=== PATIENT | female | born 1990 | race Caucasian/White ===

== ENCOUNTER 2016-12-13 22:05 | Inpatient (IN) | payer BC ==
[2016-12-14] MEDS ORDERED: Promethazine INJ(RESTRICTED)* 25 MG/ML 1 ML VIAL IV ONE (01:00)
[2016-12-14] MEDS ORDERED: Nalbuphine* 20 MG/ML 1 ML VIAL IV ONE (01:00)
[2016-12-14] MEDS ORDERED: Promethazine INJ(RESTRICTED)* 25 MG/ML 1 ML VIAL IM ONE (01:00)
[2016-12-14] MEDS ORDERED: Nalbuphine* 20 MG/ML 1 ML VIAL IM ONE (01:00)
[2016-12-14 12:47] LABS: Hematocrit 38 % (35-47); Mean Corpuscular HGB Conc 35 g/dl (31-36); Mean Corpuscular Hemoglobin 33 pg (27-31); Mean Corpuscular Volume 94 fL (80-97); Mean Platelet Volume 10 um3 (7.4-10.4); Red Blood Count 3.99 10^6/ul (4.0-5.4); Red Cell Distribution Width 13 % (10.5-15)
[2016-12-14] MEDS ORDERED: OBEPIDURAL* 250 ML ONE (17:29)
[2016-12-14] MEDS ORDERED: fentaNYL* 50 MCG/ML 2 ML VIAL (100 MCG VIAL) IV SLOW PU ONE (19:07)
[2016-12-14] MEDS ORDERED: fentaNYL* 50 MCG/ML 2 ML VIAL (100 MCG VIAL) ONE (19:08)
[2016-12-14] MEDS ORDERED: Sodium Citrate/Citric Acid* 15 ML UDC PO PRN (19:37)
[2016-12-14] MEDS ORDERED: Phenylephrine IV* 40 MCG/ML 10 ML SYRINGE IV PUSH PRN ×2 (19:37)
[2016-12-14] MEDS ORDERED: OBEPIDURAL* 250 ML EPIDURAL SCH (20:00)
[2016-12-14] MEDS ORDERED: Oxytocin in LR* 20 UNITS/1,000 ML BAG IVPB ONE (22:17)
[2016-12-15] MEDS ORDERED: Witch Hazel PAD* JAR TOPICAL PRN (00:07)
[2016-12-15] MEDS ORDERED: Glycerin ADULT SUPP PR PRN (00:07)
[2016-12-15] MEDS ORDERED: Tetan/Diph/Pertus SYR(Tdap)* 0.5 ML SYR(BOOSTRIX) use SYR IM ONE (00:07)
[2016-12-15] MEDS ORDERED: Acetaminophen TAB* 325 MG PO PRN (00:07)
[2016-12-15] MEDS ORDERED: Dibucaine 1% 28.35 GM TUBE PR PRN (00:07)
[2016-12-15] MEDS: Ibuprofen TAB* 600 MG PO PRN ×3 (02:24→16:24)
[2016-12-15 06:35] LABS: Hematocrit 33 % (35-47); Hemoglobin 11.3 g/dl (12.0-16.0); Mean Corpuscular HGB Conc 34 g/dl (31-36); Mean Corpuscular Hemoglobin 32 pg (27-31); Mean Corpuscular Volume 94 fL (80-97); Mean Platelet Volume 10 um3 (7.4-10.4); Red Blood Count 3.54 10^6/ul (4.0-5.4); Red Cell Distribution Width 13 % (10.5-15); White Blood Count 22.1 10^3/ul (3.5-10.8)
[2016-12-15 06:36] LABS: Add Diff/Slide Review? Slide Review Added; Comments Flag Yes
[2016-12-15] MEDS ORDERED: Simethicone CHEW TAB* 80 MG PO SCH (08:30)
[2016-12-15] MEDS: Docusate CAP* 100 MG PO SCH ×2 (08:33→13:29)
[2016-12-15] MEDS: oxyCODONE/Acetamin 5/325 MG* TAB PO PRN ×2 (13:29→18:03)
[2016-12-16] MEDS: Ibuprofen TAB* 600 MG PO PRN ×2 (06:15→13:50)
[2016-12-16 08:45] VITALS: BP 112/69
[2016-12-16] MEDS ORDERED: Ferrous Gluconate TAB* 324 MG TAB PO SCH (09:00)
[2016-12-16] MEDS: Docusate CAP* 100 MG PO SCH ×2 (09:16→13:50)
[2016-12-16] MEDS: Butalb/Acetamin/Caff TAB* 1 TAB PO SCH ×2 (09:16→13:50)
== END 2016-12-16 17:22 | disposition home or self-care (01) | DRG 560 ==
LOC: MCHOBOUT 22:05 → MCHOB 12-14 12:01
PROVIDERS: ADMIT Midwife; ATTEND Midwife
PROC: 10E0XZZ Delivery of Products of Conception, External Approach (ICD-10-PCS; principal; 2016-12-14)
PROC: 10907ZC Drainage of Amniotic Fluid, Therapeutic from Products of Conception, Via Natural or Artificial Opening (ICD-10-PCS; 2016-12-14)
PROC: 4A1HXCZ Monitoring of Products of Conception, Cardiac Rate, External Approach (ICD-10-PCS; 2016-12-14)
PROC: 0KQM0ZZ Repair Perineum Muscle, Open Approach (ICD-10-PCS; 2016-12-14)
DX: O48.0 Post-term pregnancy (principal); O74.6 Other complications of spinal and epidural anesthesia during labor and delivery; O70.1 Second degree perineal laceration during delivery; G97.41 Accidental puncture or laceration of dura during a procedure; Z3A.40 40 weeks gestation of pregnancy; Z37.0 Single live birth; O74.5 Spinal and epidural anesthesia-induced headache during labor and delivery; Y84.8 Other medical procedures as the cause of abnormal reaction of the patient, or of later complication, without mention of misadventure at the time of the procedure; Y92.238 Other place in hospital as the place of occurrence of the external cause; T40.2X5A Adverse effect of other opioids, initial encounter; R11.0 Nausea; M54.2 Cervicalgia
CPT/HCPCS: 36415; 85025; 86850; 86900; 86901; A9270-GY; J2300; J2550; J3010

== ENCOUNTER 2016-12-18 18:12 | Day surgery (SDC) | payer BC | END 2016-12-18 20:55 | disposition home or self-care (01) | LOC: OR 18:12 | PROVIDERS: ATTEND Anesthesiology | DX: R51 Headache (principal); M54.2 Cervicalgia; M54.9 Dorsalgia, unspecified; H93.19 Tinnitus, unspecified ear | CPT/HCPCS: 62273 ==

== ENCOUNTER 2017-06-12 09:00 | Emergency (ER) | payer BC ==
[2017-06-12 09:45] VITALS: BP 128/75
--- NOTE | 2017-06-12 10:00 | UC ---
Throat Pain/Nasal Joni HPI - HPI Summary HPI Summary: sore throat x 4 days no fever, no chills, no cough , no runny nose or nasal congestion - History of Current Complaint Chief Complaint: UCRespiratory Stated Complaint: SORE THROAT Time Seen by Provider: 06/12/17 09:50 Hx Obtained From: Patient Hx Last Menstrual Period: 05/20/17 Onset/Duration: Gradual Onset, Lasting Days - 4, Still Present Severity: Moderate Pain Intensity: 45 Cough: None Associated Signs & Symptoms: Negative: Dysphagia, FB Sensation, Drooling, Wheezing, Hoarseness, Sinus Discomfort, Nasal Discharge, Fever, Vomiting, Rash - Allergies/Home Medications Allergies/Adverse Reactions: Allergies Allergy/AdvReac Type Severity Reaction Status Date / Time No Known Allergies Allergy Verified 06/12/17 09:42 Home Medications: Home Medications NK [No Home Medications Reported] 06/12/17 [History Confirmed 06/12/17] PMH/Surg Hx/FS Hx/Imm Hx Previously Healthy: Yes - Surgical History Surgical History: None - Family History Known Family History: Negative: Diabetes - Social History Alcohol Use: None Substance Use Type: None Smoking Status (MU): Never Smoked Tobacco - Immunization History Most Recent Influenza Vaccination: none Most Recent Pneumonia Vaccination: none Review of Systems Constitutional: Negative Skin: Negative Eyes: Negative ENT: Sore Throat Respiratory: Negative Cardiovascular: Negative Gastrointestinal: Negative Musculoskeletal: Negative Is Patient Immunocompromised?: No All Other Systems Reviewed And Are Negative: Yes Physical Exam Triage Information Reviewed: Yes Appearance: Well-Appearing, No Pain Distress, Well-Nourished Vital Signs: Initial Vital Signs Temp 98.4 F 06/12/17 09:41 Pulse 102 06/12/17 09:41 Resp 15 06/12/17 09:41 BP 128/75 06/12/17 09:41 Pulse Ox 97 06/12/17 09:41 Vital Signs Reviewed: Yes Eye Exam: Normal Eyes: Positive: Conjunctiva Clear ENT: Positive: Normal ENT inspection, Pharyngeal erythema, TMs normal. Negative : Nasal congestion, Nasal drainage, TM bulging, TM dull, TM red, Tonsillar swelling, Tonsillar exudate Dental Exam: Normal Neck exam: Normal Neck: Positive: 1 Respiratory Exam: Normal Respiratory: Positive: Chest non-tender, Lungs clear, Normal breath sounds, No respiratory distress Cardiovascular Exam: Normal Cardiovascular: Positive: RRR, No Murmur, Pulses Normal Abdominal Exam: Normal Musculoskeletal Exam: Normal Neurological Exam: Normal Psychological Exam: Normal Skin Exam: Normal Throat Pain/Nasal Course/Dx - Differential Dx/Diagnosis Provider Diagnoses: viral pharyngitis Discharge - Discharge Plan Condition: Stable Disposition: HOME Patient Education Materials: Pharyngitis (ED) Referrals: Dia Angel [Primary Care Provider] - If Needed Additional Instructions: negative Rapid Strep viral pharyngitis no need for antibiotics
== END 2017-06-12 10:04 | disposition home or self-care (01) ==
LOC: UCCORT 09:00
DX: J02.8 Acute pharyngitis due to other specified organisms (principal)
CPT/HCPCS: 87651; 99211; G0463

== ENCOUNTER 2017-08-11 08:21 | Emergency (ER) | payer BC ==
[2017-08-11 08:31] VITALS: BP 127/78
--- NOTE | 2017-08-11 08:47 | UC ---
Alexis Pollack Julia, scribed for Leah David MD on 08/11/17 at 0845 . General HPI - HPI Summary HPI Summary: This patient is a 26 year old F presenting to [facility] with a chief complaint of sinus pressure and pain and rhinorrhea with green phlegm for the past week and a half. Patient reports mild bilateral jaw pain and post nasal drip. Patient denies ear pain, sore throat, fever, chills, nausea, and vomiting. Symptoms alleviated by warm showers. Symptoms unchanged by Emmie Diaz. She states symptoms are similar to previous sinus infections, which she gets about once a year. Pt reports bilateral dental achiness. Pt denies chance of . No fever, chills rash. Pt gets yeast infection from abx. Medications and allergies reviewed this visit. - History of Current Complaint Chief Complaint: UCGeneralIllness Stated Complaint: SINUS CONGESTION Hx Obtained From: Patient Hx Last Menstrual Period: 08/07/17 Onset/Duration: Lasting Weeks, Still Present Timing: Constant Pain Intensity: 0 Pain Location at: bilateral jaw and sinuses Alleviating: warm showers Associated Signs & Symptoms: Positive: Other - post nasal drip, sinuse pressure , dental pain Similar Episode/Dx as: sinus infections - Allergy/Home Medications Allergies/Adverse Reactions: Allergies Allergy/AdvReac Type Severity Reaction Status Date / Time No Known Allergies Allergy Verified 08/11/17 08:30 Home Medications: Home Medications Norethindrone [Norlyda] 1 tab PO DAILY 08/11/17 [History Confirmed 08/11/17] PMH/Surg Hx/FS Hx/Imm Hx Previously Healthy: Yes - Pt denies medical history, besides oral contraceptive use. - Surgical History Surgical History: None - Family History Known Family History: Negative: Cardiac Disease, Diabetes - Social History Occupation: Employed Full-time - [employer] Lives: With Family Alcohol Use: None Substance Use Type: None Smoking Status (MU): Never Smoked Tobacco - Immunization History Most Recent Influenza Vaccination: none Most Recent Tetanus Shot: UTD Most Recent Pneumonia Vaccination: none Review of Systems Constitutional: Negative ENT: Negative - sore throat/ ear ache, Dental Pain, Nasal Discharge, Sinus Congestion, Sinus Pain/Tenderness Gastrointestinal: Negative All Other Systems Reviewed And Are Negative: Yes Physical Exam Triage Information Reviewed: Yes Appearance: Well-Appearing, No Pain Distress, Well-Nourished Vital Signs: Initial Vital Signs Temp 97.2 F 08/11/17 08:26 Pulse 78 08/11/17 08:26 Resp 18 08/11/17 08:26 BP 127/78 08/11/17 08:26 Pulse Ox 100 08/11/17 08:26 Vital Signs Reviewed: Yes Eye Exam: Normal Eyes: Positive: Conjunctiva Clear ENT: Positive: Nasal congestion, Other - scant fluid left TM turbinates inflammed and boggy + PND uvula midline + TTP max sinuses l>r Dental Exam: Normal Neck exam: Normal Neck: Positive: Supple, Nontender, No Lymphadenopathy Respiratory Exam: Normal Respiratory: Positive: Lungs clear, Normal breath sounds, No respiratory distress, No accessory muscle use Cardiovascular Exam: Normal Cardiovascular: Positive: RRR, No Murmur, Pulses Normal Abdominal Exam: Normal Musculoskeletal Exam: Normal Neurological Exam: Normal Neurological: Positive: Alert Psychological Exam: Normal Course/Dx - Course Course Of Treatment: PT with progressive sinus congestion and discomfort. Pt with thick green secretionsPt with exam c/w sinusitis. rx flonase, amox. diflucan for yeast. secretiion precaution. return precaution - Differential Dx - Multi-Symptom Provider Diagnoses: sinusitis Discharge - Sign-Out/Discharge Documenting (check all that apply): Discharge - Discharge Plan Condition: Stable Disposition: HOME Prescriptions: Amoxicillin PO (*) [Amoxicillin 875 MG (*)] 875 mg PO BID #20 tab Fluconazole [Diflucan 150 MG (NF)] 150 mg PO ONCE #1 tab Fluticasone NASAL SPRAY 50MCG* [Flonase NASAL SPRAY 50MCG*] 2 spray BOTH NARES DAILY #1 btl Patient Education Materials: Rhinosinusitis (ED) Referrals: Dia Angel [Primary Care Provider] - Additional Instructions: - Stay well hydrated. Drink plenty of non-alcoholic, non-caffinated beverages. - Alternate ibuprofen (Advil, Motrin) 600mg and Tylenol every 3 hours for pain or fever. Take with food. Do NOT take for more than 4-5 days. - These infections are spread by secretions - do NOT share eating or drinking utensils - clean items you share with other people such as cell phones, computer mouse, TV remote, computer tablets,etc. Once you have been on antibiotics for 3 days, change your toothbrush and your pillowcase. - get plenty of restful sleep - humidify the air in the room where you sleep - boil water, run a hot steam shower, vaporizer, cups of water by heat register - okay to take over the counter decongestant and cough medication - use nasal spray as instructed - you have been given the 1 time treatment for vaginal yeast infection if you develop following the antibiotic use - contact your doctor or return with questions or concerns - Billing Disposition and Condition Condition: STABLE Disposition: HOME The documentation as recorded by the Alexis valle Julia accurately reflects the service I personally performed and the decisions made by me, Leah David MD.
== END 2017-08-11 08:50 | disposition home or self-care (01) ==
LOC: UCEAST 08:21
DX: J32.9 Chronic sinusitis, unspecified (principal)
CPT/HCPCS: 99212; G0463